=== PATIENT | female | born 1965 | race Caucasian/White ===

== ENCOUNTER 2017-03-01 22:21 | Emergency (ER) | payer BC ==
--- NOTE | 2017-03-01 22:55 | Emergency Department Record ---
History of Present Illness - General Chief Complaint: Cough Stated Complaint: UTI Time Seen by Provider: 03/01/17 22:53 Source: Patient Mode of Arrival: Ambulatory Limitations: No limitations - History of Present Illness Initial Comments: The patient is here due to a 10 day hx of cough, congestion and sputum production. She did see her PCP last week and was told she may have a virus and was not placed on any medicine. She has had fever and chills also. The patient denies any CP, SOB, or headache. The patient states she may have had an allergic rxn to Penicillin 30 years but did recently take Amoxicillin with no difficulty. MD Complaint: Cough, Fever Onset/Timin -: Days(s) Severity: Moderate Consistency: Intermittent - Related Data Home Medications Medication Instructions Recorded Confirmed Last Taken Thyroid,Pork [Nature-Throid] 130 mg PO DAILY 03/01/17 03/01/17 03/01/17 Previous Rx's Medication Instructions Recorded Azithromycin [Zithromax] 250 mg PO ASDIR #6 tab 03/02/17 Promethazine HCl/Codeine 5 ml PO QID PRN #118 ml 03/02/17 [Phenergan W/Codeine] Allergies Allergy/AdvReac Type Severity Reaction Status Date / Time Penicillins Allergy ANAPHYLAXIS Verified 03/01/17 22:48 hydromorphone [From Dilaudid] AdvReac can't sit Verified 03/01/17 22:48 up-gets very drowsy Review of Systems Constitutional: Reports: Chills, Fever, Malaise Eyes: Denies: Eye discharge ENT: Reports: Congestion Respiratory: Reports: Cough. Denies: Dyspnea Cardiovascular: Denies: Chest pain Past Medical History - SOCIAL HISTORY Smoking Status: Never smoker Drug Use: None - RESPIRATORY Hx Respiratory Disorders: No - CARDIOVASCULAR Hx Cardio Disorders: No Physical Exam - General General Appearance: Alert, Oriented x3, Cooperative, No acute distress - Head Head exam: Atraumatic, Normocephalic, Normal inspection - Eye Eye exam: Normal appearance, PERRL - ENT ENT exam: Normal exam, Mucous membranes moist, Normal external ear exam, Normal orophraynx, TM's normal bilaterally Throat exam: Normal inspection. negative: Tonsillar erythema, Tonsillar exudate - Neck Neck exam: Normal inspection, Full ROM. negative: Lymphadenopathy, Tenderness - Respiratory Respiratory exam: Normal lung sounds bilaterally. negative: Rales, Respiratory distress - Cardiovascular Cardiovascular Exam: Regular rate, Normal rhythm, Normal heart sounds - GI/Abdominal GI/Abdominal exam: Soft, Normal bowel sounds. negative: Tenderness - Extremities Extremities exam: Normal inspection, Full ROM, Normal capillary refill. negative: Tenderness Course Vital Signs 03/01/17 22:42 Temperature 101.0 F H Pulse Rate [ 71 Pulse Ox Probe] Respiratory 20 Rate Blood Pressure 134/76 [Left Arm] Pulse Ox 96 - Reevaluation(s) Reevaluation #1: The patient is doing very well at this time. She is resting comfortably and denies any JAI or CP. I did explain to her that it appears she has a RUL infiltrate. We will place her on Zithromax and a cough medicine and have her F/ U with her PCP later this week. 03/02/17 00:19 Medical Decision Making - Data Complexity MDM Data: X-Ray Ordered and/or Reviewed - Lab Data Result diagrams: 03/01/17 23:20 03/01/17 23:20 - Radiology Data Radiology results: Report reviewed (CXR: RUL infiltrate.) Disposition Disposition: Discharge Clinical Impression: Pneumonia Qualifiers: Pneumonia type: due to unspecified organism Laterality: right Lung location: upper lobe of lung Qualified Code(s): J18.1 - Lobar pneumonia, unspecified organism Disposition: Home, Self-Care Condition: (1) Good Instructions: Community Acquired Pneumonia (ED) Additional Instructions: Please take Tylenol or Motrin to keep your fever down. Please take the Zithromax as directed and use the cough medicine as needed. Please see your PCP later this week for recheck and return to the ER for any increased cough, fever , or any trouble breathing. Prescriptions: Azithromycin [Zithromax] 250 mg PO ASDIR #6 tab Promethazine HCl/Codeine [Phenergan W/Codeine] 5 ml PO QID PRN #118 ml PRN Reason: Cough Forms: Patient Portal Access Time of Disposition: 00:24 Quality - Quality Measures Quality Measures: N/A - Blood Pressure Screening View Details: Yes Does Patient Have Any of the Following: No Blood Pressure Classification: Normal BP Reading Systolic Measurement: 108 Diastolic Measurement: 73 Screening for High Blood Pressure: < Normal BP, F/U Not Required > [[id number]]
[2017-03-01 23:27] LABS: BASO % 0.6 % (0-6); EOS % 1.2 % (0-6); GRAN % 67.3 % (47-80); HEMATOCRIT 34.1 % (35.0-47.0); HEMOGLOBIN 11.3 gm/dl (11.6-16.0); LYMPH % 20.4 % (16-45); MEAN CELL VOLUME 90.7 fl (81-97); MEAN CORPUSCULAR HGB CONC 33.1 g/dl (32-36); MONO % 10.5 % (0-9); PLATELET COUNT 239 K/uL (130-400); RED BLOOD COUNT 3.76 M/uL (3.80-5.40); RED CELL DISTRIBUTION WIDTH 11.7 % (11.5-14.5); WHITE BLOOD COUNT W/O DIFF 5.2 K/uL (4.2-12.2)
[2017-03-01 23:41] LABS: ANION GAP 8.1 (7-16); BLOOD UREA NITROGEN 7 mg/dL (7-17); C-REACTIVE PROTEIN 8.5 mg/dL (0.0-0.9); CARBON DIOXIDE 26.9 mmol/L (22-30); CREATININE 0.6 mg/dL (0.52-1.04); EST GLOMERULAR FILTRATION RATE > 60 ml/min; GLUCOSE,RANDOM 103 mg/dL (70-110)
[2017-03-01] MEDS: CEFTRIAXONE SODIUM 1 GM in 0.9 % SODIUM CHLORIDE 100ML 100 ML IVPB ONE (23:47)
[2017-03-01] MEDS: AZITHROMYCIN 500 MG TABLET PO ONE (23:48)
[2017-03-01] MEDS: IBUPROFEN 600 MG TABLET PO ONE (23:48)
[2017-03-02] MEDS: PROMETHAZINE W/CODEINE 10ML UD PO ONE (00:31)
--- NOTE | 2017-03-03 10:36 | RADIOLOGY REPORT ---
EXAM: CHEST, TWO VIEWS HISTORY: PRODUCTIVE COUGH AND FEVER FOR A WEEK. TECHNIQUE: PA and lateral views of the chest were obtained. Comparison: None. FINDINGS: There is infiltrate along the inferior aspect of the right upper lobe abutting the minor fissure consistent with pneumonitis in this location. There is some minor linear fibrosis and discoid atelectasis in the left lateral costophrenic angle as well. The heart size is normal. No pleural effusion or pneumothorax evident. Mild thoracic curve to the right with minor spurring in the spine. IMPRESSION: 1. INFILTRATE INFERIORLY IN THE RIGHT UPPER LOBE CONSISTENT WITH PNEUMONITIS. FOLLOW-UP FILMS SUGGESTED TO DEMONSTRATE CLEARING. 2. MINOR LINEAR FIBROSIS OR DISCOID ATELECTASIS LEFT BASE LATERALLY. JOB NUMBER: [id number] MTDD
== END 2017-03-02 00:35 | disposition home or self-care (01) ==
LOC: ER 22:21
DX: J18.1 Lobar pneumonia, unspecified organism (principal)
CPT/HCPCS: 71020; 80048; 85025; 86140; 96365; 99285